=== PATIENT | male | born 1975 | race African-American/Black ===

== ENCOUNTER → 2018-08-21 | Outpatient (CLI) | payer OTHER ==
[2018-08-21 16:56] LABS: BASO % 1 % (0-3); EOS % 1 % (0-3); HEMATOCRIT 41.8 % (39.0-53.0); HEMOGLOBIN 14.3 g/dL (13.0-17.5); LYMPH # 2.3 x10^3/uL (1.0-4.8); LYMPH % 54 % (24-48); MEAN CORPUSCULAR HEMOGLOBIN 29 pg (25-35); MEAN CORPUSCULAR HGB CONC 34 g/dL (31-37); MEAN CORPUSCULAR VOLUME 84 fL (79-100); MONO # 0.4 x10^3/uL (0.0-1.1); MONO % 8 % (0-9); NEUT # 1.6 x10^3uL (1.8-7.7); NEUT % 36 % (31-73); PLATELET COUNT 136 x10^3/uL (140-400); RED BLOOD COUNT 4.99 x10^6/uL (4.30-5.70); WHITE BLOOD COUNT 4.4 x10^3/uL (4.0-11.0)
[2018-08-21 18:57] LABS: ALBUMIN 3.8 g/dL (3.4-5.0); ALBUMIN/GLOBULIN RATIO 1.2 (1.0-1.7); CALCIUM 8.7 mg/dL (8.5-10.1); CREATININE 1.1 mg/dL (0.7-1.3); GFR 87.6; MAGNESIUM 1.9 mg/dL (1.8-2.4); POTASSIUM 4.2 mmol/L (3.5-5.1); TOTAL BILIRUBIN 0.5 mg/dL (0.2-1.0); TOTAL PROTEIN 6.9 g/dL (6.4-8.2)
[2018-08-21 18:58] LABS: CHOLESTEROL/HDL RATIO 5.2
[2018-08-22 03:15] LABS: IMMUNOGLOBULIN A 212 mg/dL (90-386); IMMUNOGLOBULIN G 1055 mg/dL (700-1600); IMMUNOGLOBULIN M 44 mg/dL (20-172); TESTOSTERONE TOTAL 646 ng/dL (264-916)
== END | disposition home or self-care (01) ==
LOC: LAB 16:21
PROVIDERS: ATTEND Internal Medicine Hematology
DX: C92.01 Acute myeloblastic leukemia, in remission (principal); Z94.81 Bone marrow transplant status
CPT/HCPCS: 36415; 80053; 80061; 82306; 82728; 82784; 83540; 83550; 83735; 84403; 84443; 85025

== ENCOUNTER → 2018-09-18 | Outpatient (CLI) | payer OTHER ==
[2018-09-18 11:03] LABS: BASO % 1 % (0-3); EOS % 1 % (0-3); HEMATOCRIT 40.5 % (39.0-53.0); HEMOGLOBIN 14.2 g/dL (13.0-17.5); LYMPH # 1.8 x10^3/uL (1.0-4.8); LYMPH % 55 % (24-48); MEAN CORPUSCULAR HEMOGLOBIN 29 pg (25-35); MEAN CORPUSCULAR HGB CONC 35 g/dL (31-37); MEAN CORPUSCULAR VOLUME 83 fL (79-100); MONO # 0.3 x10^3/uL (0.0-1.1); MONO % 10 % (0-9); NEUT # 1.1 x10^3uL (1.8-7.7); NEUT % 33 % (31-73); PLATELET COUNT 117 x10^3/uL (140-400); RED BLOOD COUNT 4.85 x10^6/uL (4.30-5.70); RED CELL DISTRIBUTION WIDTH 15.5 % (11.5-14.5); WHITE BLOOD COUNT 3.3 x10^3/uL (4.0-11.0)
[2018-09-18 11:20] LABS: ALBUMIN 3.8 g/dL (3.4-5.0); ALBUMIN/GLOBULIN RATIO 1.2 (1.0-1.7); CALCIUM 8.9 mg/dL (8.5-10.1); CREATININE 1.2 mg/dL (0.7-1.3); GFR 79.2; POTASSIUM 4.4 mmol/L (3.5-5.1); TOTAL BILIRUBIN 0.7 mg/dL (0.2-1.0); TOTAL PROTEIN 7.1 g/dL (6.4-8.2)
== END | disposition home or self-care (01) ==
LOC: LAB 10:34
PROVIDERS: ATTEND Internal Medicine Hematology & Oncology
DX: C92.01 Acute myeloblastic leukemia, in remission (principal)
CPT/HCPCS: 36415; 80053; 85025

== ENCOUNTER → 2018-11-27 | Outpatient (CLI) | payer OTHER ==
[2018-11-27 16:50] LABS: BASO % 1 % (0-3); EOS % 1 % (0-3); HEMATOCRIT 38.7 % (39.0-53.0); HEMOGLOBIN 13.5 g/dL (13.0-17.5); LYMPH # 2.5 x10^3/uL (1.0-4.8); LYMPH % 49 % (24-48); MEAN CORPUSCULAR HEMOGLOBIN 29 pg (25-35); MEAN CORPUSCULAR HGB CONC 35 g/dL (31-37); MEAN CORPUSCULAR VOLUME 83 fL (79-100); MONO # 0.5 x10^3/uL (0.0-1.1); MONO % 10 % (0-9); NEUT % 39 % (31-73); PLATELET COUNT 101 x10^3/uL (140-400); RED BLOOD COUNT 4.65 x10^6/uL (4.30-5.70); RED CELL DISTRIBUTION WIDTH 15.4 % (11.5-14.5); WHITE BLOOD COUNT 5.2 x10^3/uL (4.0-11.0)
== END | disposition home or self-care (01) ==
LOC: LAB 16:22
PROVIDERS: ATTEND Internal Medicine Hematology & Oncology
DX: C92.01 Acute myeloblastic leukemia, in remission (principal)
CPT/HCPCS: 36415; 85025

== ENCOUNTER → 2019-01-28 | Outpatient (CLI) | payer OTHER ==
[2019-01-28 11:45] LABS: BASO % 1 % (0-3); EOS # 0.1 x10^3/uL (0.0-0.7); EOS % 2 % (0-3); HEMATOCRIT 41.5 % (39.0-53.0); HEMOGLOBIN 14.1 g/dL (13.0-17.5); LYMPH # 2.2 x10^3/uL (1.0-4.8); LYMPH % 43 % (24-48); MEAN CORPUSCULAR HEMOGLOBIN 28 pg (25-35); MEAN CORPUSCULAR HGB CONC 34 g/dL (31-37); MEAN CORPUSCULAR VOLUME 81 fL (79-100); MONO # 0.5 x10^3/uL (0.0-1.1); MONO % 10 % (0-9); NEUT # 2.3 x10^3/uL (1.8-7.7); NEUT % 45 % (31-73); PLATELET COUNT 68 x10^3/uL (140-400); RED BLOOD COUNT 5.13 x10^6/uL (4.30-5.70); RED CELL DISTRIBUTION WIDTH 14.9 % (11.5-14.5); WHITE BLOOD COUNT 5.1 x10^3/uL (4.0-11.0)
== END | disposition home or self-care (01) ==
LOC: LAB 11:21
PROVIDERS: ATTEND Internal Medicine Hematology & Oncology
DX: C92.01 Acute myeloblastic leukemia, in remission (principal)
CPT/HCPCS: 36415; 85025

== ENCOUNTER → 2019-04-01 | Outpatient (CLI) | payer OTHER ==
[2019-04-01 17:08] LABS: BASO % 0 % (0-3); EOS % 1 % (0-3); HEMATOCRIT 42.8 % (39.0-53.0); HEMOGLOBIN 14.5 g/dL (13.0-17.5); LYMPH # 2.9 x10^3/uL (1.0-4.8); LYMPH % 57 % (24-48); MEAN CORPUSCULAR HEMOGLOBIN 25 pg (25-35); MEAN CORPUSCULAR HGB CONC 34 g/dL (31-37); MEAN CORPUSCULAR VOLUME 75 fL (79-100); MONO # 0.5 x10^3/uL (0.0-1.1); MONO % 10 % (0-9); NEUT # 1.6 x10^3/uL (1.8-7.7); NEUT % 33 % (31-73); PLATELET COUNT 33 x10^3/uL (140-400); RED BLOOD COUNT 5.69 x10^6/uL (4.30-5.70); RED CELL DISTRIBUTION WIDTH 14.8 % (11.5-14.5)
[2019-04-01 17:13] LABS: PLT ESTIMATE DECREASED (ADEQUATE)
[2019-04-01 17:14] LABS: ANISOCYTOSIS SLIGHT
[2019-04-01 17:15] LABS: POLYCHROMASIA SLIGHT
== END | disposition home or self-care (01) ==
LOC: LAB 13:12
PROVIDERS: ATTEND Internal Medicine Hematology & Oncology
DX: C92.01 Acute myeloblastic leukemia, in remission (principal)
CPT/HCPCS: 36415; 85025

== ENCOUNTER 2019-04-15 07:29 | Outpatient (CLI) | payer OTHER ==
[~2019-04-15] VITALS: Ht 188 cm; Wt 90.7 kg
[2019-04-15] VITALS (8 sets, daily range): BP systolic 112–128; BP diastolic 62–85
[2019-04-15] MEDS ORDERED: LIDOCAINE WITH 8.4% SOD BICARB 3 ML DISP.SYRIN. ONE (08:08)
[2019-04-15] MEDS ORDERED: MIDAZOLAM HCL/PF 2 MG/2 ML VIAL. ONE (08:21)
[2019-04-15] MEDS ORDERED: fentaNYL PF VIAL 100 MCG/2 ML VIAL ONE (08:22)
[2019-04-15 08:32] LABS: BASO % 0 % (0-3); EOS % 1 % (0-3); HEMATOCRIT 41.1 % (39.0-53.0); HEMOGLOBIN 13.8 g/dL (13.0-17.5); LYMPH % 53 % (24-48); MEAN CORPUSCULAR HEMOGLOBIN 25 pg (25-35); MEAN CORPUSCULAR HGB CONC 34 g/dL (31-37); MEAN CORPUSCULAR VOLUME 74 fL (79-100); MONO # 0.4 x10^3/uL (0.0-1.1); MONO % 9 % (0-9); NEUT # 1.4 x10^3/uL (1.8-7.7); NEUT % 36 % (31-73); RED BLOOD COUNT 5.53 x10^6/uL (4.30-5.70); RED CELL DISTRIBUTION WIDTH 14.4 % (11.5-14.5); WHITE BLOOD COUNT 3.8 x10^3/uL (4.0-11.0)
[2019-04-15 08:43] LABS: PROTHROMBIN TIME PATIENT 12.8 SEC (11.7-14.0)
[2019-04-15 08:49] LABS: PLATELET COUNT 22 x10^3/uL (140-400)
[2019-04-15] MEDS ORDERED: fentaNYL PF VIAL 100 MCG/2 ML VIAL IV ONE ×2 (09:15→10:45)
[2019-04-15] MEDS ORDERED: MIDAZOLAM HCL/PF 2 MG/2 ML VIAL. IV ONE (09:15)
[2019-04-15] MEDS ORDERED: LIDOCAINE WITH 8.4% SOD BICARB 3 ML DISP.SYRIN. IJ ONE (09:15)
[2019-04-15] MEDS ORDERED: ONDANSETRON PF 4 MG/2 ML VIAL. ONE ×2 (09:23→10:19)
[2019-04-15] MEDS ORDERED: ONDANSETRON PF 4 MG/2 ML VIAL. IVP ONE ×2 (09:30→10:30)
--- NOTE | 2019-04-15 10:01 | RAD ---
CT-guided bone marrow biopsy. 04/15/2019 7:57 AM Indication: Acute myelogenous leukemia Discussion: The risks and benefits of the procedure, including but not limited to, bleeding and infection were discussed patient. Informed consent was obtained. The patient was brought to the CT scanner and placed in the prone position. A timeout procedure was performed. Narrow Gauge Engineer CT imaging of the pelvis demonstrated left ilium amenable to bone marrow biopsy. The overlying soft tissues were prepped and draped using maximum sterile barrier technique. 1% lidocaine without epinephrine was administered for local anesthesia. Under intermittent CT guidance, an OncControl needle was advanced into the bone marrow of the left iliac crest. 2 Aspirates and 1 core biopsy samples were obtained. Samples were delivered to pathology was present at the time of procedure. The needle was removed and manual pressure held to achieve hemostasis. No immediate complications were identified. The procedure was performed under conscious sedation including continuous cardiopulmonary monitoring via dedicated sedation nurse. Sedation time: 20 minutes Impression: Successful CT-guided bone marrow biopsy of the left iliac crest . PQRS Compliance Statement: One or more of the following individualized dose reduction techniques were utilized for this examination: 1. Automated exposure control 2. Adjustment of the mA and/or kV according to patient size 3. Use of iterative reconstruction technique
[2019-04-15] MEDS ORDERED: ONDANSETRON PF 4 MG/2 ML VIAL. IM ONE (10:15)
[2019-04-15] MEDS ORDERED: LIDOCAINE 1%/EPI 1:100,000 20 ML VIAL. INJ ONE (10:45)
[2019-04-15 10:46] LABS: % BANDS 1 % (0-9); % LYMPHS 44 % (24-48); % MONOS 7 % (0-10)
[2019-04-15 10:48] LABS: MICROCYTOSIS SLIGHT; PLT ESTIMATE DECREASED (ADEQUATE)
[2019-04-15 11:10] LABS: % ATYL 2 % (0-0); % SEGS 46 % (35-66)
--- NOTE | 2019-04-19 00:06 | PATHOLOGY ---
[facility] Accession Number: [id number] . 01 Material submitted: . PART A: bone - BONE MARROW BIOPSY PART B: bone - BONE MARROW CLOT PART C: bone - BONE MARROW ASPIRATE SLIDES PART D: bone - PERIPHERAL BLOOD SMEARS PART E: bone - BONE MARROW FLOW . 01 Clinical history: . This is a 43-year-old man with acute myeloid leukemia. . 02 Diagnosis: Bone marrow aspirate, biopsy, cell clot and peripheral blood: - Peripheral blood with mild leukopenia/neutropenia, reactive-appearing lymphocytes and severe thrombocytopenia. - Normocellular bone marrow with trilineage hematopoiesis, erythroid hyperplasia, mild trilineage dyspoiesis and borderline mildly increased myeloblasts (5% by morphology and 3.4% by flow cytometry). (See comment) . (W:[facility]; 04/18/2019) [facility] 04/18/2019 [facility] . 02 Comment: Overall, the bone marrow is normocellular for the patient's age with trilineage hematopoiesis, erythroid hyperplasia, mild dyspoiesis and borderline mildly increased myeloblasts. There are 5% blasts by morphology and 3.4% blasts by flow cytometry. There is no diagnostic evidence of acute leukemia. The dyspoiesis is mild and does not meet the morphologic criteria for myelodysplasia. Correlation with clinical history, additional laboratory data and cytogenetic/molecular studies is required. . Claim Service Representative slides are co-reviewed with Dr. Sally Thompson and Dr. Murali Cordero. . (CLW:mm; 04/18/2019) . 02 Electronically signed: . Mulu Fierro MD, Pathologist NPI- [id number] . 01 Gross description: . A. Received in formalin labeled "Tuan Garcia, BM BX," is a single needle core of kelley bone measuring 2.0 cm in length and 0.2 cm in diameter. The specimen is submitted entirely in cassette A1, following decalcification. . B. Received in formalin labeled "Tuan Garcia BM Asp clot," is an aggregate of dark kelley blood clot measuring 2.6 x 1.9 x 0.1 cm. The specimen is filtered and entirely submitted in cassette B1. (TSD; 04/15/2019) TOB/TOB 04/15/2019 [facility] . 02 Microscopic: . CBC Data (04/15/19): WBC 3,800/uL, RBC 5.53, hemoglobin 13.8 g/dL, hematocrit 41.1%, MCV 74 fL, MCH 25 pg, MCHC 34 g/dL, RDW 14.4%, and platelet count 22,000/uL. White blood cell differential: segs 36%, lymphs 53%, monos 9%, eos 1%. . Peripheral Blood Smear: Cytomorphological examination of the Lockwood's stained peripheral blood smear confirms the provided data. Red blood cells are microcytic and are without significant anisopoikilocytosis. A borderline mild erythrocytosis is noted. White blood cells are mildly decreased in number. They are predominantly lymphocytes that are small, round and mature appearing with condensed chromatin and scant cytoplasm with admixed large granular lymphocytes and reactive-appearing lymphocytes. Granulocytes are predominantly segmented neutrophils and are without significant dyspoiesis or significant left shift. Monocytes are mature. Platelets are markedly decreased in number and mainly normal in morphology with rare larger platelets noted. . Aspirate Smears: Cytomorphological examination of the Lockwood's stained aspirate smears shows spicules present. The overall cellularity is approximately 60%. The myeloid to erythroid ratio is 1:1. Full myeloid maturation is identified and is mildly dyspoietic with a left shift in maturation. Erythroid maturation is mildly dyserythropoietic with irregular nuclear contours, binucleate forms and a mild left shift in maturation. In a 500 cell differential, there are 5% blasts (no Indira rods are seen), 41% more differentiated myeloids, 46% erythroid precursors and 8% lymphocytes. Megakaryocytes are proportional to mildly decreased in number and both normal and abnormal in morphology. No lymphoid aggregates or markedly atypical lymphoid cells are seen. Plasma cells are without atypia. Iron stain of the aspirate smear shows 3/4+ iron positivity with spicules present. No ringed sideroblasts are identified. . Core Biopsy and Cell Clot: The decalcified bone marrow core biopsy is adequate. The bone marrow is normocellular with an overall cellularity of approximately 60%. The myeloid to erythroid ratio is 1:1. Myeloid and erythroid maturation are mildly dyspoietic. Megakaryocytes are somewhat inconspicuous. The megakaryocytes identified are mainly normal in morphology. No lymphoid aggregates or markedly atypical lymphoid cells are seen. Bony trabeculae and blood vessels are unremarkable. The cell clot has spicules present that are similar in cellularity and differential morphology as previously described. . Properly-controlled special stains are performed: . Block A1: Iron: 2-3/4+ iron positivity; Reticulin: No significant reticulin fibrosis; . . Block B1: Iron: 3/4+ iron positivity with spicules present. . To confirm the flow cytometry findings and to identify cells in a tissue architectural context, properly-controlled immunohistochemical stains are performed: . . Block A1: CD34: No increased or abnormally localized blasts; CD117: No increased or abnormally localized blasts; Myeloperoxidase: Confirms the M:E ratio; Glycophorin-A: Confirms the M:E ratio; . . Block B1: CD34: No increased blasts; CD117: No increased blasts; Myeloperoxidase: Confirms the M:E ratio; Glycophorin-A: Confirms the M:E ratio. . Flow Cytometry: Flow cytometric immunophenotypic analysis was performed at [facility]. The diagnosis is "no immunophenotypic evidence of lymphoma, acute leukemia or plasma cell neoplasm." There are 11.5% lymphocytes. Of the lymphocytes, there are 74% T-cells with a CD4/CD8 ratio of 0.5 and no aberrant T-cell antigen expression and 19% polyclonal mature B-cells (kappa:lambda ratio of 1.5). There are 3.4% CD34 positive cells (blasts) and precursor B-cells are not detected. There is no evidence of dysmaturation. No immunophenotypic evidence of a lymphoproliferative disorder, acute leukemia or plasma cell neoplasm is identified. Please see separate flow cytometry report from [facility] ([id number]). . Cytogenetics Analysis: Cytogenetic chromosomal analysis is pending at [facility] ([id number]). Molecular analysis for a neotype AML prognostic profile is pending at [facility] ([id number]). . (CLW:mml; 04/18/2019) . 02 Pathologist provided ICD-10: D72.819, D70.9, D69.6, D75.89 . 02 CPT . 699033, 458994, 329520, 238278, 696741, 011919, 321258, 576601, 746122, [id number], [id number] Specimen Comment: A courtesy copy of this report has been sent to [phone], [phone] Specimen Comment: [id number], Specimen Comment: Report sent to ,DR BARRIOS / DR TRISTAN Specimen Comment: A duplicate report has been generated due to demographic updates. Performed at: 01 [facility] [address] [id number] MD Rehan Mckeon MD Phone: [phone] Performed at: [address] [id number] MD Lj Flores MD Phone: [phone]
== END 2019-04-15 11:25 | disposition home or self-care (01) ==
LOC: INTRAD 07:29
PROVIDERS: ATTEND Internal Medicine Hematology
DX: C92.00 Acute myeloblastic leukemia, not having achieved remission (principal); Z79.01 Long term (current) use of anticoagulants
CPT/HCPCS: 36415; 38222; 77012; 85025; 85045; 85610; 85730; 87497; 88184; 88185; 88237; 88305; 88311; 88313; 88341; 88342; 99152; J2250; J2405; J3010; 85007

== ENCOUNTER → 2019-04-25 | Outpatient (CLI) | payer OTHER ==
[2019-04-15 10:30] VITALS: BP 116/64
[2019-04-25 15:22] LABS: BASO % 1 % (0-3); EOS # 0.1 x10^3/uL (0.0-0.7); EOS % 1 % (0-3); LYMPH # 2.8 x10^3/uL (1.0-4.8); LYMPH % 58 % (24-48); MEAN CORPUSCULAR HEMOGLOBIN 26 pg (25-35); MEAN CORPUSCULAR HGB CONC 34 g/dL (31-37); MEAN CORPUSCULAR VOLUME 75 fL (79-100); MONO # 0.5 x10^3/uL (0.0-1.1); MONO % 11 % (0-9); NEUT # 1.4 x10^3/uL (1.8-7.7); NEUT % 30 % (31-73); RED BLOOD COUNT 5.49 x10^6/uL (4.30-5.70); RED CELL DISTRIBUTION WIDTH 14.9 % (11.5-14.5); WHITE BLOOD COUNT 4.9 x10^3/uL (4.0-11.0)
[2019-04-25 15:58] LABS: PLATELET COUNT 22 x10^3/uL (140-400)
[2019-04-25 16:03] LABS: MICROCYTOSIS MOD; PLT ESTIMATE DECREASED (ADEQUATE); POLYCHROMASIA SLIGHT
== END | disposition home or self-care (01) ==
LOC: LAB 14:58
PROVIDERS: ATTEND Internal Medicine Hematology & Oncology
DX: D69.6 Thrombocytopenia, unspecified (principal)
CPT/HCPCS: 36415; 85025

== ENCOUNTER 2019-08-19 08:12 | Outpatient (CLI) | payer OTHER ==
[~2019-08-19] VITALS: Ht 185.4 cm; Wt 94.3 kg
[2019-08-19] VITALS (12 sets, daily range): BP systolic 116–136; BP diastolic 64–84
[2019-08-19] MEDS ORDERED: ELTR50TA PO (08:48)
[2019-08-19 08:51] LABS: BASO % 1 % (0-3); EOS # 0.1 x10^3/uL (0.0-0.7); EOS % 2 % (0-3); HEMATOCRIT 41.2 % (39.0-53.0); HEMOGLOBIN 14.3 g/dL (13.0-17.5); LYMPH # 1.6 x10^3/uL (1.0-4.8); LYMPH % 48 % (24-48); MEAN CORPUSCULAR HEMOGLOBIN 28 pg (25-35); MEAN CORPUSCULAR HGB CONC 35 g/dL (31-37); MEAN CORPUSCULAR VOLUME 82 fL (79-100); MONO # 0.5 x10^3/uL (0.0-1.1); MONO % 14 % (0-9); NEUT # 1.2 x10^3/uL (1.8-7.7); NEUT % 36 % (31-73); PLATELET COUNT 233 x10^3/uL (140-400); RED BLOOD COUNT 5.02 x10^6/uL (4.30-5.70); RED CELL DISTRIBUTION WIDTH 20.4 % (11.5-14.5); WHITE BLOOD COUNT 3.4 x10^3/uL (4.0-11.0)
[2019-08-19 09:25] LABS: PROTHROMBIN TIME PATIENT 12.3 SEC (11.7-14.0)
[2019-08-19] MEDS ORDERED: LIDOCAINE WITH 8.4% SOD BICARB 3 ML DISP.SYRIN. ONE (10:03)
[2019-08-19] MEDS ORDERED: fentaNYL PF VIAL 100 MCG/2 ML VIAL ONE (10:49)
[2019-08-19] MEDS ORDERED: MIDAZOLAM HCL/PF 2 MG/2 ML VIAL. ONE (10:49)
[2019-08-19] MEDS ORDERED: ONDANSETRON PF 4 MG/2 ML VIAL. ONE (10:50)
[2019-08-19] MEDS ORDERED: fentaNYL PF VIAL 100 MCG/2 ML VIAL IV ONE (11:15)
[2019-08-19] MEDS ORDERED: LIDOCAINE WITH 8.4% SOD BICARB 3 ML DISP.SYRIN. IJ ONE (11:15)
[2019-08-19] MEDS ORDERED: ONDANSETRON PF 4 MG/2 ML VIAL. IM ONE (11:15)
[2019-08-19] MEDS ORDERED: MIDAZOLAM HCL/PF 2 MG/2 ML VIAL. IV ONE (11:15)
--- NOTE | 2019-08-19 12:25 | NUR ---
Discharge Note: JESSICA DAVIS Discharge instructions and discharge home medications reviewed with Patient and a copy given. All questions have been answered and understanding verbalized. Dressing to sacrum remains dry and intact. The following instructions and handouts were given: bone marrow biopsy, moderate sedation Discontinued lines and drains: Peripheral IV intact. Patient discharged to Home or Self Care with Spouse via Wheelchair MARISSA RN Addendum: 08/19/19 at 1331 by ANNEL PATEL RN Amended: Links added.
--- NOTE | 2019-08-19 13:25 | RAD ---
CT-guided bone marrow biopsy. 08/19/2019 11:21 AM Indication: Neutropenia Discussion: The risks and benefits of the procedure, including but not limited to, bleeding and infection were discussed patient. Informed consent was obtained. The patient was brought to the CT scanner and placed in the prone position. A timeout procedure was performed. Rn Corrections CT imaging of the pelvis demonstrated left ilium amenable to bone marrow biopsy. The overlying soft tissues were prepped and draped using maximum sterile barrier technique. 1% lidocaine without epinephrine was administered for local anesthesia. Under intermittent CT guidance, an OncControl needle was advanced into the bone marrow of the left iliac crest. 2 Aspirates and 1 core biopsy samples were obtained. Samples were delivered to pathology was present at the time of procedure. The needle was removed and manual pressure held to achieve hemostasis. No immediate complications were identified. The procedure was performed under conscious sedation including continuous cardiopulmonary monitoring via dedicated sedation nurse. Sedation time: 20 minutes Impression: Successful CT-guided bone marrow biopsy of the left iliac crest . PQRS Compliance Statement: One or more of the following individualized dose reduction techniques were utilized for this examination: 1. Automated exposure control 2. Adjustment of the mA and/or kV according to patient size 3. Use of iterative reconstruction technique
== END 2019-08-19 12:25 | disposition home or self-care (01) ==
LOC: INTRAD 08:12
PROVIDERS: ATTEND Internal Medicine Hematology & Oncology
DX: D70.9 Neutropenia, unspecified (principal); Z79.899 Other long term (current) drug therapy; Z79.01 Long term (current) use of anticoagulants
CPT/HCPCS: 36415; 38222; 77012; 85025; 85610; 85730; 88184; 88185; 88237; 99152; J2250; J2405; J3010; J3490

== ENCOUNTER → 2019-12-12 | Outpatient (CLI) | payer OTHER ==
[2019-08-19 12:20] VITALS: BP 116/69
[~2019-12-12] MED LIST: ELTR50TA PO
[2019-12-12 12:02] LABS: BASO % 0 % (0-3); EOS % 1 % (0-3); HEMATOCRIT 41.3 % (39.0-53.0); LYMPH # 1.7 x10^3/uL (1.0-4.8); LYMPH % 54 % (24-48); MEAN CORPUSCULAR HEMOGLOBIN 25 pg (25-35); MEAN CORPUSCULAR HGB CONC 34 g/dL (31-37); MEAN CORPUSCULAR VOLUME 73 fL (79-100); MONO # 0.4 x10^3/uL (0.0-1.1); MONO % 13 % (0-9); NEUT % 32 % (31-73); PLATELET COUNT 34 x10^3/uL (140-400); RED CELL DISTRIBUTION WIDTH 15.6 % (11.5-14.5)
[2019-12-13 15:05] LABS: WHITE BLOOD COUNT 3.2 x10^3/uL (4.0-11.0)
== END | disposition home or self-care (01) ==
LOC: ONCLAB 11:40
PROVIDERS: ATTEND Internal Medicine Hematology & Oncology
DX: C92.Z1 Other myeloid leukemia, in remission (principal); D69.3 Immune thrombocytopenic purpura
CPT/HCPCS: 36415; 85025

== ENCOUNTER → 2019-12-30 | Outpatient (CLI) | payer OTHER ==
[2019-08-19 12:20] VITALS: BP 116/69
[2019-12-30 10:50] LABS: BASO % 1 % (0-3); EOS % 1 % (0-3); HEMATOCRIT 40.9 % (39.0-53.0); HEMOGLOBIN 13.7 g/dL (13.0-17.5); LYMPH # 1.7 x10^3/uL (1.0-4.8); LYMPH % 53 % (24-48); MEAN CORPUSCULAR HEMOGLOBIN 24 pg (25-35); MEAN CORPUSCULAR HGB CONC 33 g/dL (31-37); MEAN CORPUSCULAR VOLUME 71 fL (79-100); MONO # 0.5 x10^3/uL (0.0-1.1); MONO % 15 % (0-9); NEUT % 30 % (31-73); PLATELET COUNT 29 x10^3/uL (140-400); RED BLOOD COUNT 5.74 x10^6/uL (4.30-5.70); RED CELL DISTRIBUTION WIDTH 14.8 % (11.5-14.5); WHITE BLOOD COUNT 3.2 x10^3/uL (4.0-11.0)
[2019-12-30 11:03] LABS: CALCIUM 8.9 mg/dL (8.5-10.1); GFR 97.3; POTASSIUM 4.2 mmol/L (3.5-5.1)
[2019-12-30 11:09] LABS: ALBUMIN 3.8 g/dL (3.4-5.0); ALBUMIN/GLOBULIN RATIO 1.1 (1.0-1.7); TOTAL BILIRUBIN 0.9 mg/dL (0.2-1.0); TOTAL PROTEIN 7.2 g/dL (6.4-8.2)
== END | disposition home or self-care (01) ==
LOC: ONCLAB 10:35
PROVIDERS: ATTEND Internal Medicine Hematology & Oncology
DX: D69.3 Immune thrombocytopenic purpura (principal)
CPT/HCPCS: 36415; 80053; 80061; 83615; 85025